=== PATIENT | female | born 1970 | race Caucasian/White ===

== ENCOUNTER 2019-05-10 14:43 | Outpatient (CLI) | payer BC ==
--- NOTE | 2019-05-10 15:48 | MMO ---
Bilateral MAMMO Bilat Screen [facility]. CLINICAL HISTORY: Patient is 49 years old and is seen for screening. The patient has no family history of breast cancer. The patient has no personal history of cancer. VIEWS: The views performed were: bilateral craniocaudal with tomosynthesis; bilateral mediolateral oblique with tomosynthesis; and bilateral exaggerated craniocaudal. FILMS COMPARED: The present examination has been compared to prior imaging studies performed at 07/03/2017 and 07/11/2017. MAMMOGRAM FINDINGS: The breasts are heterogeneously dense, which could obscure a lesion on mammography. There are no suspicious masses, suspicious calcifications, or new areas of architectural distortion. IMPRESSION: THERE IS NO MAMMOGRAPHIC EVIDENCE OF MALIGNANCY. A ROUTINE FOLLOW-UP MAMMOGRAM IN 1 YEAR IS RECOMMENDED. THE RESULTS OF THIS EXAM WERE SENT TO THE PATIENT. ACR BI-RADS Category 1 - Negative MAMMOGRAPHY NOTE: 1. A negative mammogram report should not delay a biopsy if a dominant of clinically suspicious mass is present. 2. Approximately 10% to 15% of breast cancers are not detected by mammography. 3. Adenosis and dense breasts may obscure an underlying neoplasm. Reported by: JOSE PARR MD Electonically Signed: [id number]
== END 2019-05-10 14:44 | disposition home or self-care (01) ==
LOC: BICMAMMO 14:43
PROVIDERS: ATTEND Obstetrics & Gynecology
DX: Z12.31 Encounter for screening mammogram for malignant neoplasm of breast (principal)
CPT/HCPCS: 77063; 77067

== ENCOUNTER 2020-12-26 14:09 | Outpatient (CLI) | payer BC ==
[2020-12-26 14:50] LABS: #Basophils 0.1 10x3/uL (0.0-0.2); #Eosinphils 0.2 10x3/uL (0.0-0.5); #Monocytes 0.6 10x3/uL (0.0-1.1); #Neutrophils 3.2 10x3/uL (1.5-8.4); %Basophils 0.7 % (0.0-2.0); %Eosinophils 2.4 % (0.0-6.0); %Monocytes 8.5 % (0.0-10.0); %Neutrophils 45.3 % (40.0-75.0); Hemoglobin 14.3 g/dL (12.0-15.5); Mean Corpuscular HGB CONC 32.6 g/dL (32.0-36.0); Mean Corpuscular Hemoglobin 28.9 pg (27.0-33.0); Mean Corpuscular Volume 88.9 fl (81.6-98.3); Mean Platelet Volume 11.2 fl (7.4-10.4); Platelet Count 237 10x3/uL (150-450); Red Blood Cell (RBC) Count 4.94 10x6/uL (3.90-5.03); White Blood Cell (WBC) Count 7.1 10x3/uL (3.5-10.5)
[2020-12-27 03:09] LABS: SARS-CoV-2 PCR by NAA Not Detected (NotDetected)
== END 2020-12-26 14:10 | disposition home or self-care (01) ==
LOC: LABBT 14:09
PROVIDERS: ATTEND Orthopaedic Surgery Hand Surgery
DX: Z01.812 Encounter for preprocedural laboratory examination (principal); G56.01 Carpal tunnel syndrome, right upper limb; G56.21 Lesion of ulnar nerve, right upper limb; Z20.822 Contact with and (suspected) exposure to COVID-19
CPT/HCPCS: 85025; 87635; U0003; U0005

== ENCOUNTER 2020-12-29 05:53 | Day surgery (SDC) | payer BC ==
[2020-12-27 15:26] VITALS: BMI 25.4
[2020-12-29] MEDS ORDERED: Fentanyl 100 MCG/2 ML VIAL ONE (06:14)
[2020-12-29] MEDS ORDERED: Sodium Chloride 0.9% 10 ML ONE (06:18)
[2020-12-29] MEDS ORDERED: Bacitracin Zinc Ointment 30 gm TUBE ONE (06:18)
[2020-12-29] MEDS ORDERED: Bupivacaine PF 0.5% 30 ML VIAL ONE (06:18)
[2020-12-29] MEDS ORDERED: Betamet Acet/Betamet Na Ph 30 MG/5 ML VIAL ONE (06:18)
[2020-12-29] MEDS ORDERED: Midazolam HCl 2 mg/2 ml Vial ONE (06:57)
[2020-12-29] MEDS ORDERED: Clindamycin/D5W 600 mg/50 ml Premix Bag ONE (07:05)
[2020-12-29] MEDS ORDERED: PHENYLEPHRINE-NS 100 MCG/ML 10 ML SYRINGE ONE (09:29)
[2020-12-29] MEDS ORDERED: Ketorolac Tromethamine 30 MG/ML VIAL ONE (09:29)
[2020-12-29] MEDS ORDERED: ePHEDrine 50 MG/ML VIAL ONE (09:29)
[2020-12-29] MEDS ORDERED: PROPOFOL 200 MG/20 ML VIAL ONE (09:29)
[2020-12-29] MEDS ORDERED: Lidocaine 1% PF 5 ML VIAL ONE (09:29)
[2020-12-29] MEDS ORDERED: Ondansetron PF 4 MG/2 ML Vial ONE (09:29)
[2020-12-29] MEDS ORDERED: Dexamethasone 20 MG/5 ML VIAL ONE (09:29)
== END 2020-12-29 11:05 | disposition home or self-care (01) ==
LOC: SDC 05:53
PROVIDERS: ATTEND Orthopaedic Surgery Hand Surgery
PROC: 01N50ZZ Release Median Nerve, Open Approach (ICD-10-PCS; principal; 2020-12-29)
PROC: 0MT30ZZ Resection of Right Elbow Bursa and Ligament, Open Approach (ICD-10-PCS; principal; 2020-12-29)
DX: M70.21 Olecranon bursitis, right elbow (principal); G56.21 Lesion of ulnar nerve, right upper limb; G56.01 Carpal tunnel syndrome, right upper limb; Z88.0 Allergy status to penicillin
CPT/HCPCS: 88304; J0690; J0702; J1100; J1885; J2250; J2405; J2704; J3010; J3490; S0020